=== PATIENT | male | born 1955 | race Caucasian/White ===

== ENCOUNTER 2020-02-02 23:58 | Emergency (ER) | payer BC, OTHER ==
--- NOTE | 2020-02-03 00:02 | EDM.PDOC ---
ED HPI GENERAL MEDICAL PROBLEM - General Stated Complaint: CHEST PAIN Time Seen by Provider: 02/03/20 00:02 Source of Information: Reports: Patient History Limitations: Reports: No Limitations - History of Present Illness INITIAL COMMENTS - FREE TEXT/NARRATIVE: 64-year-old male who reports that approximately 10:30 PM tonight while he was sitting in his recliner and eating a taco he developed a pain along his left shoulder that was an aching pain in then moved to his left lateral chest and then to his left flank. At this point though the pain was a sharp pain and it was worse when he took a deep breath or moved. He had no symptoms really prior to this other than some mild soreness along that area as he reports that on Wednesday of this week he had a coughing episode that was quite tense. He did not have any really significant pain at that point though. There is no nausea or vomiting associated with this. No shortness of breath. No hemoptysis. He was rating the pain as a 9/10 at its worst and it was an 8/10 when he arrived. He arrives via private vehicle via a friend. There are no other associated signs or symptoms. There are no other modifying factors. Onset: Today Duration: Getting Worse Location: Reports: Chest (Left anterior and lateral chest), Upper Extremity, Left (Left shoulder) Quality: Reports: Ache, Sharp Severity: Moderate (to severe) Improves with: Reports: Rest Worsens with: Reports: Breathing (Deep breath), Other (Palpation), Movement Context: Reports: Other Associated Symptoms: Reports: No Other Symptoms Treatments TALENT DEVELOPMENT CONSULTANT: Reports: Other (see below) (Nothing) - Related Data Allergies Allergy/AdvReac Type Severity Reaction Status Date / Time No Known Allergies Allergy Verified 02/03/20 00:18 Home Meds: Home Meds NK [No Known Home Meds] 02/03/20 [History] Past Medical History - Past Health History Medical/Surgical History: Denies Medical/Surgical History (No chronic medical problems. Surgical history as detailed below.) - Past Surgical History GI Surgical History: Reports: Colonoscopy (2) Social & Family History - Family History Cardiac: Reports: None - Tobacco Use Smoking Status *Q: Current Every Day Smoker - Alcohol Use Alcohol Use History: Yes - Recreational Drug Use Recreational Drug Use: No - Living Situation & Occupation Living situation: Reports: . Denies: Single Occupation: Employed (He is an over the road machine design engineer.) ED ROS GENERAL - Review of Systems Review Of Systems: See Below Constitutional: Reports: No Symptoms HEENT: Reports: No Symptoms Respiratory: Reports: Pleuritic Chest Pain Cardiovascular: Reports: Chest Pain. Denies: Dyspnea on Exertion, Lightheadedness Endocrine: Reports: No Symptoms GI/Abdominal: Reports: Stool Incontinence : Reports: No Symptoms Musculoskeletal: Reports: No Symptoms Skin: Reports: No Symptoms Neurological: Reports: No Symptoms Psychiatric: Reports: No Symptoms Hematologic/Lymphatic: Reports: No Symptoms Immunologic: Reports: No Symptoms ED EXAM, GENERAL - Physical Exam Exam: See Below Exam Limited By: No Limitations General Appearance: Alert, WD/WN, Mild Distress Eye Exam: Bilateral Eye: EOMI, Normal Inspection, PERRL Ears: Normal External Exam, Hearing Grossly Normal Ear Exam: Bilateral Ear: Auricle Normal Nose: Normal Inspection, Normal Mucosa, No Blood Throat/Mouth: Normal Inspection, Normal Lips, Normal Oropharynx, Normal Voice, No Airway Compromise Head: Atraumatic, Normocephalic Neck: Normal Inspection, Supple, Non-Tender, Full Range of Motion Respiratory/Chest: No Respiratory Distress, Lungs Clear, Normal Breath Sounds, No Accessory Muscle Use, Other (Tender to palpation along the left lateral and anterior chest. There is no crepitus or subcutaneous emphysema.) Cardiovascular: Normal Peripheral Pulses, Regular Rate, Rhythm Peripheral Pulses: 2+: Radial (L), Radial (R), Dorsalis Pedis (L), Dorsalis Pedis (R) GI/Abdominal: Normal Bowel Sounds, Soft, Non-Tender, No Organomegaly, No Mass Back Exam: Normal Inspection, Full Range of Motion Extremities: Normal Inspection, Normal Range of Motion, Non-Tender, No Pedal Edema, Normal Capillary Refill Neurological: Alert, Oriented, CN II-XII Intact, Normal Cognition, No Motor/Sensory Deficits Psychiatric: Normal Affect Skin Exam: Warm, Dry, Intact, Normal Color, No Rash Lymphatic: No Adenopathy EKG INTERPRETATION EKG Date: 02/03/20 Time: 00:01 Rhythm: NSR Rate (Beats/Min): 81 [place]: Normal P-Wave: Present QRS: Other (Nonspecific IVCD) ST-T: Normal QT: Normal Comparison: NA - No Prior EKG Course - Vital Signs Last Recorded V/S: Last Vital Signs Temp 36.6 C 02/03/20 00:05 Pulse 75 02/03/20 01:30 Resp 18 02/03/20 01:30 BP 113/68 02/03/20 01:30 Pulse Ox 96 02/03/20 01:30 - Orders/Labs/Meds Orders: Active Orders 24 hr Category Date Time Status EKG Documentation Completion [RC] ASDIRECTED Care 02/03/20 00:22 Active Ang Chest [CT] Stat Exams 02/03/20 01:47 Taken Chest 1V Frontal [CR] Stat Exams 02/03/20 00:21 Taken Sodium Chloride 0.9% [Normal Saline] 1,000 ml Med 02/03/20 00:30 Active IV ASDIRECTED Sodium Chloride 0.9% [Saline Flush] Med 02/03/20 00:21 Active 10 ml FLUSH ASDIRECTED PRN Peripheral IV Insertion Adult [OM.PC] Routine Oth 02/03/20 00:21 Ordered EKG 12 Lead [EK] Routine Ther 02/03/20 00:21 Ordered Medication Orders Sodium Chloride (Normal Saline) 1,000 mls @ 125 mls/hr IV ASDIRECTED STEVE Last Admin: 02/03/20 00:35 Dose: 125 mls/hr Documented by: BRENLOR Sodium Chloride (Saline Flush) 10 ml FLUSH ASDIRECTED PRN PRN Reason: Keep Vein Open Labs: Laboratory Tests 02/03/20 02/03/20 02/03/20 Range/Units 00:27 00:27 00:27 WBC 8.4 (4.5-12.0) X10-3/uL RBC 4.59 (4.30-5.75) x10(6)uL Hgb 13.5 (13.5-17.8) g/dL Hct 41.7 (30.0-51.3) % MCV 90.8 (80-96) fL MCH 29.4 (27.7-33.6) pg MCHC 32.4 (32.2-35.4) g/dL RDW 12.6 (11.5-15.5) % Plt Count 259 (125-369) X10(3)uL MPV 9.4 (7.4-10.4) fL Neut % (Auto) 64.9 (46-82) % Lymph % (Auto) 24.0 (13-37) % [place] % (Auto) 7.2 (4-12) % Eos % (Auto) 3 (1.0-5.0) % Baso % (Auto) 1 (0-2) % Neut # (Auto) 5.4 (1.6-8.3) # Lymph # (Auto) 2.0 (0.6-5.0) # [place] # (Auto) 0.6 (0.0-1.3) # Eos # (Auto) 0.3 (0.0-0.8) # Baso # (Auto) 0.1 (0.0-0.2) # D-Dimer, Quantitative 0.87 H (0.0-0.59) mg/LFEU Sodium 140 (135-145) mmol/L Potassium 3.4 L (3.5-5.3) mmol/L Chloride 103 (100-110) mmol/L Carbon Dioxide 25 (21-32) mmol/L BUN 12 (7-18) mg/dL Creatinine 0.9 (0.70-1.30) mg/dL Est Cr Clr Drug Dosing TNP Estimated GFR (MDRD) > 60 (>60) BUN/Creatinine Ratio 13.3 (9-20) Glucose 116 (80-116) mg/dL Calcium 8.8 (8.6-10.2) mg/dL Magnesium 2.0 (1.8-2.5) mg/dL Total Bilirubin 0.4 (0.1-1.3) mg/dL AST 36 H (5-25) IU/L ALT 36 (12-36) U/L Alkaline Phosphatase 85 (56-112) IU/L Troponin I (4.0-60.3) pg/mL Total Protein 7.7 (6.0-8.0) g/dL Albumin 3.4 (3.2-4.6) g/dL Globulin 4.3 g/dL Albumin/Globulin Ratio 0.8 02/03/20 02/03/20 Range/Units 00:27 02:35 WBC (4.5-12.0) X10-3/uL RBC (4.30-5.75) x10(6)uL Hgb (13.5-17.8) g/dL Hct (30.0-51.3) % MCV (80-96) fL MCH (27.7-33.6) pg MCHC (32.2-35.4) g/dL RDW (11.5-15.5) % Plt Count (125-369) X10(3)uL MPV (7.4-10.4) fL Neut % (Auto) (46-82) % Lymph % (Auto) (13-37) % [place] % (Auto) (4-12) % Eos % (Auto) (1.0-5.0) % Baso % (Auto) (0-2) % Neut # (Auto) (1.6-8.3) # Lymph # (Auto) (0.6-5.0) # [place] # (Auto) (0.0-1.3) # Eos # (Auto) (0.0-0.8) # Baso # (Auto) (0.0-0.2) # D-Dimer, Quantitative (0.0-0.59) mg/LFEU Sodium (135-145) mmol/L Potassium (3.5-5.3) mmol/L Chloride (100-110) mmol/L Carbon Dioxide (21-32) mmol/L BUN (7-18) mg/dL Creatinine (0.70-1.30) mg/dL Est Cr Clr Drug Dosing Estimated GFR (MDRD) (>60) BUN/Creatinine Ratio (9-20) Glucose (80-116) mg/dL Calcium (8.6-10.2) mg/dL Magnesium (1.8-2.5) mg/dL Total Bilirubin (0.1-1.3) mg/dL AST (5-25) IU/L ALT (12-36) U/L Alkaline Phosphatase (56-112) IU/L Troponin I 4.0 4.7 (4.0-60.3) pg/mL Total Protein (6.0-8.0) g/dL Albumin (3.2-4.6) g/dL Globulin g/dL Albumin/Globulin Ratio Meds: Medications Generic Name Dose Route Start Last Admin Trade Name Freq PRN Reason Stop Dose Admin Sodium Chloride 1,000 mls @ 125 mls/hr 02/03/20 00:30 02/03/20 00:35 Normal Saline IV 125 mls/hr ASDIRECTED STEVE Administration Sodium Chloride 10 ml 02/03/20 00:21 Saline Flush FLUSH ASDIRECTED PRN Keep Vein Open Discontinued Medications Generic Name Dose Route Start Last Admin Trade Name Mukesh PRN Reason Stop Dose Admin Aspirin 324 mg 02/03/20 00:22 02/03/20 00:35 Aspirin PO 02/03/20 00:23 324 mg ONETIME ONE Administration Iopamidol 100 ml 02/03/20 01:54 02/03/20 02:05 Isovue-370 (76%) IV 02/03/20 01:55 100 ml . DIRECTED ONE Administration Morphine Sulfate 4 mg 02/03/20 00:22 02/03/20 00:42 Morphine IVPUSH 02/03/20 00:23 4 mg ONETIME ONE Administration Ondansetron HCl 4 mg 02/03/20 00:22 02/03/20 00:52 Zofran IVPUSH 02/03/20 00:23 4 mg ONETIME ONE Administration - Radiology Interpretation Free Text/Narrative:: Portable chest x-ray showed no acute disease CTA of chest showed no evidence of pulmonary embolism. There was slight irregularity on the lateral aspect of the seventh and eighth ribs which could represent a nondisplaced fracture of indeterminate age. This is per the radiologist. The area where the patient is having the most pain. And there is some pain that is reproducible in this area. There is no crepitus or subcutaneous emphysema this area. - Re-Assessments/Exams Free Text/Narrative Re-Assessment/Exam: 02/03/20 01:40: The patient reports that his pain is basically a 1/10 at present and appears to be going away. He feels much improved. His initial troponin was normal. The d-dimer was slightly elevated. I discussed with the patient that we will need to CTA of his chest to rule out a blood clot. He is in favor of doing this. 02/03/20 03:00: The CTA of the patient's chest showed no evidence of pulmonary embolism. However there was some evidence of a left seventh and eighth rib fracture that was of indeterminate age. He apparently reports that he broke 2 ribs last year and that may be what we are seeing on the CT scan now. It should be noted that on Wednesday of this week he did have some hard coughing spells and now relates that he had some increased soreness in that area earlier in the week and he injured this area of the ribs and that is what the pain was coming from. A repeat troponin was performed and it was negative again that this rules out an RI. Pulmonary embolism has been ruled out as well. The pain appears to be musculoskeletal in nature and he is stable for discharge at this point. The patient is in agreement with the plan for discharge. I did stress to the patient that he needs to follow-up with his primary provider and it would be lemons for him to get an outpatient stress test. Precautions and reasons for return to the emergency department were discussed with the patient while he was here in the emergency department and were detailed in the patient's discharge instructions Departure - Departure Time of Disposition: 03:20 Disposition: Home, Self-Care 01 Condition: Good Clinical Impression: Atypical chest pain, Left-sided chest wall pain Ribs, multiple fractures Qualifiers: Encounter type: initial encounter Fracture type: closed Laterality: left Qualified Code(s): S22.42XA - Multiple fractures of ribs, left side, initial encounter for closed fracture Instructions: Chest Wall Pain, [id number], Nonspecific Chest Pain, Adult, [id number], Rib Fracture, Psct-on-Ldcy Referrals: Yobani Dejesus MD [Primary Care Provider] - Additional Instructions: Your blood tests were all reassuringly normal except for an elevated blood clot screening test. The CT scan of your chest showed no evidence of blood clots but did show evidence of indeterminate fractures of both the seventh and eighth ribs on your left side. You may take Tylenol or ibuprofen as needed for pain. You should avoid any strenuous lifting, pushing or pulling. You will need to follow- up with your primary provider is you will need patient testing. Back to the emergency department for marked increase in pain, trouble breathing, coughing up blood, fevers, progressive weakness or any other concerning sign or symptom. Sepsis Event Note (ED) - Focused Exam Vital Signs: Vital Signs Temp Pulse Resp BP Pulse Ox 02/03/20 01:30 75 18 113/68 96 02/03/20 01:00 79 16 114/69 96 02/03/20 00:30 81 16 120/70 98 02/03/20 00:15 84 16 139/70 99 02/03/20 00:05 36.6 C 02/03/20 00:00 83 18 140/85 99 - My Orders Last 24 Hours: My Active Orders 02/03/20 00:21 Chest 1V Frontal [CR] Stat Sodium Chloride 0.9% [Saline Flush] 10 ml FLUSH ASDIRECTED PRN Peripheral IV Insertion Adult [OM.PC] Routine EKG 12 Lead [EK] Routine 02/03/20 00:22 EKG Documentation Completion [RC] ASDIRECTED 02/03/20 00:30 Sodium Chloride 0.9% [Normal Saline] 1,000 ml IV ASDIRECTED 02/03/20 01:47 Ang Chest [CT] Stat - Assessment/Plan Last 24 Hours: My Active Orders 02/03/20 00:21 Chest 1V Frontal [CR] Stat Sodium Chloride 0.9% [Saline Flush] 10 ml FLUSH ASDIRECTED PRN Peripheral IV Insertion Adult [OM.PC] Routine EKG 12 Lead [EK] Routine 02/03/20 00:22 EKG Documentation Completion [RC] ASDIRECTED 02/03/20 00:30 Sodium Chloride 0.9% [Normal Saline] 1,000 ml IV ASDIRECTED 02/03/20 01:47 Ang Chest [CT] Stat
[2020-02-03] MEDS ORDERED: Sodium Chloride 0.9% 10 ML Syringe FLUSH PRN (00:21)
[2020-02-03] MEDS: Aspirin 81 MG Tab.Chew PO ONE (00:35)
[2020-02-03] MEDS: Sodium Chloride 0.9% 1,000 ML IV SCH (00:35)
[2020-02-03] MEDS: Morphine 4 MG/ML VIAL IVPUSH ONE (00:42)
[2020-02-03] MEDS: Ondansetron 4 MG/2 ML SDV IVPUSH ONE (00:52)
[2020-02-03] MEDS: Iopamidol 755 Mg/ML 100 ML Bottle IV ONE (02:05)
[2020-02-03 04:19] VITALS: BP 125/78; PULSE 75
--- NOTE | 2020-02-05 10:34 | CR ---
INDICATION: Chest pain. CHEST, ONE VIEW: Portable AP upright view of the chest revealed the heart to be normal in size and shape. The aorta is tortuous to a minimal degree with calcification in the arch to a mild degree. Overlying EKG leads are noted. A definite active infiltrate or effusion was not identified. IMPRESSION: 1. No acute process. 2. ASD aorta. MTDD
== END 2020-02-03 03:50 | disposition home or self-care (01) ==
LOC: FB.ED 23:58
DX: S22.42XA Multiple fractures of ribs, left side, initial encounter for closed fracture (principal); F17.200 Nicotine dependence, unspecified, uncomplicated; X58.XXXA Exposure to other specified factors, initial encounter
CPT/HCPCS: 36415; 71045; 71275; 80053; 83735; 84484; 85025; 85379; 93005; 96374; 96375; 99285; A9270; J2270; J2405; J7030; Q9967

== ENCOUNTER 2021-01-31 17:20 | Emergency (ER) | payer BC ==
[2021-01-31] MEDS ORDERED: Sodium Chloride 0.9% 10 ML Syringe FLUSH PRN (17:40)
[2021-01-31] MEDS ORDERED: Morphine 4 MG/ML VIAL IVPUSH STA (17:42)
[2021-01-31] MEDS ORDERED: Ondansetron 4 MG/2 ML SDV IVPUSH STA (17:42)
[2021-01-31] MEDS ORDERED: Ketorolac 30 MG/ML SDV IVPUSH STA (17:42)
[2021-01-31] MEDS ORDERED: Sodium Chloride 0.9% 1,000 ML IV SCH (17:45)
--- NOTE | 2021-01-31 18:15 | EDM.PDOC ---
<Julio Iglesias - Last Filed: 01/31/21 20:28> ED HPI GENERAL MEDICAL PROBLEM - General Chief Complaint: Abdominal Pain Stated Complaint: Abdominal pain Time Seen by Provider: 01/31/21 17:30 - Related Data Allergies Allergy/AdvReac Type Severity Reaction Status Date / Time No Known Allergies Allergy Verified 02/03/20 00:18 Home Meds: Home Meds Finasteride [Proscar] 5 mg PO DAILY 01/31/21 [History] Gabapentin [Neurontin] 300 mg PO BID 01/31/21 [History] Morphine 15 mg PO Q4H PRN 01/31/21 [History] Pantoprazole [ProTONIX] 40 mg PO BID 01/31/21 [History] Tamsulosin [Tamsulosin 24 Hr] 0.4 mg PO DAILY 01/31/21 [History] Course - Radiology Interpretation Free Text/Narrative:: CT scan of abdomen and pelvis showed multiple lesions within the liver felt to be in suspected cirrhosis. There is also adenopathy in the gastrohepatic tiffany hepatis portacaval and retroperitoneal distributions. There is a small amount of perihepatic ascites. There is a small right pleural effusion with some atelectasis in the right lower lobe. There is a small mass lateral to the right T11-T12 neural foramina thought to be metastatic area there is an appearance to the right iliac bone that would be associated with possible metastatic disease as well. This was per the [facility] radiologist. - Re-Assessments/Exams Free Text/Narrative Re-Assessment/Exam: 01/31/21 20:25: I assumed care of the patient at 7 PM. The patient was feeling much improved after IV fluids and pain medications. He had no further nausea. He was just going to CT scan at my arrival. CT scan shows evidence of metastatic disease in multiple areas but does not show any evidence of infection, small bowel obstruction or perforation. Reevaluation of the patient now reveals that he feels much improved and actually feels hungry. He had no further vomiting. He feels ready for discharge at this point. His abdomen is soft and nondistended. Bowel sounds are present I don't see anything that would require any further therapy or any further indication for diagnostic testing at this point. He is to follow-up with his oncologist on Wednesday to begin chemotherapy. Precautions and reasons for return to the emergency department were discussed with the patient and his while he was in the emergency department and were detailed in the patient's discharge instructions. Departure - Departure Time of Disposition: 20:32 Disposition: Home, Self-Care 01 Condition: Fair (Improved.) Clinical Impression: Dehydration Abdominal pain Qualifiers: Abdominal location: generalized Qualified Code(s): R10.84 - Generalized abdominal pain Metastatic cancer Qualifiers: Area of secondary neoplastic involvement: unspecified site Qualified Code(s): C79.9 - Secondary malignant neoplasm of unspecified site - Discharge Information Instructions: Dehydration, Adult, [id number], Abdominal Pain, Adult, [id number], Rehydration, Adult Referrals: Yobani Dejesus MD [Primary Care Provider] - Forms: ED Department Discharge Additional Instructions: Your blood tests show that you have a low blood count. You also had elevated liver tests. The CT scan of your abdomen and pelvis showed cancer in multiple areas as you were aware but it did not show any evidence of infection or obstruction or anything else that would require any acute intervention at this time. You should increase your fluid intake and stick with bland food and light foods for now and advance your diet as tolerated. Follow-up with your doctor on Wednesday as you have scheduled. Back to the emergency department for continued vomiting, worsening abdominal pain, blood in your stool, severe weakness, fever or any other concerning signs or symptoms. <Ar Gabriel - Last Filed: 02/02/21 19:18> ED HPI GENERAL MEDICAL PROBLEM - General Source of Information: Reports: Patient, Family History Limitations: Reports: No Limitations - History of Present Illness INITIAL COMMENTS - FREE TEXT/NARRATIVE: Patient is a 65 YO WM who presented to the ED because of LLQ and suprapubic pain which started yesterday morning. The pain is sharp,8-9/10 with associated N/V/D. He also had fever and chills last night although his temp in the ED is normal. There is no cough/cold or any urinary symptoms. 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 He underwent radiation treatment for weeks the last one was this week. Middle Abdominal Pain Score (Numeric/FACES): 10 Past Medical History - Past Health History Medical/Surgical History: Denies Medical/Surgical History (No chronic medical problems. Surgical history as detailed below.) Gastrointestinal History: Reports: GERD Musculoskeletal History: Reports: Other (See Below) Other Musculoskeletal History: History of broken leg. - Past Surgical History GI Surgical History: Reports: Colonoscopy (2) Social & Family History - Family History Family Medical History: No Pertinent Family History Cardiac: Reports: None - Living Situation & Occupation Living situation: Reports: . Denies: Single Occupation: Employed (He is an over the road c web developer.) ED ROS GENERAL - Review of Systems Review Of Systems: See Below Constitutional: Reports: Fever, Chills HEENT: Reports: No Symptoms Respiratory: Reports: No Symptoms Cardiovascular: Reports: No Symptoms Endocrine: Reports: No Symptoms GI/Abdominal: Reports: Abdominal Pain, Nausea, Vomiting : Reports: No Symptoms Musculoskeletal: Reports: No Symptoms Skin: Reports: No Symptoms Neurological: Reports: No Symptoms Psychiatric: Reports: No Symptoms ED EXAM, GI/ABD - Physical Exam Exam: See Below Exam Limited By: No Limitations General Appearance: Alert, No Apparent Distress Ears: Normal External Exam, Normal Canal Nose: Normal Inspection, Normal Mucosa, No Blood Throat/Mouth: Normal Inspection, Normal Lips, Normal Teeth Head: Atraumatic, Normocephalic Neck: Normal Inspection, Supple, Non-Tender Respiratory/Chest: No Respiratory Distress, Lungs Clear, Normal Breath Sounds, No Accessory Muscle Use, Chest Non-Tender Cardiovascular: Normal Peripheral Pulses, Regular Rate, Rhythm, No Edema, No Gallop, No JVD, No Murmur, No Rub GI/Abdominal Exam: Normal Bowel Sounds, Soft, No Organomegaly, Other (tenderness over the suprapubic area and LLQ) Back Exam: Normal Inspection, Full Range of Motion Extremities: Normal Inspection, Normal Range of Motion, Non-Tender Neurological: Alert, Oriented, CN II-XII Intact, Normal Cognition, Normal Gait, Normal Reflexes, No Motor/Sensory Deficits Course - Vital Signs Text/Narrative:: lab result was reviewed and discussed with patient and his spouse CT Abd/pelvis-pending NS 1 L bolus Morphine 4 mg IV x1 Zofran 4 mg IV x1 Toradol [address] Julio Iglesias will take care of discharge planning part as there is a change in shift Last Recorded V/S: Last Vital Signs Temp 37.7 C 01/31/21 17:26 Pulse 93 01/31/21 18:30 Resp 16 01/31/21 18:30 BP 106/67 07/09/21 18:30 Pulse Ox 100 01/31/21 18:30 - Orders/Labs/Meds Labs: Laboratory Tests 01/31/21 01/31/21 01/31/21 Range/Units 18:07 18:07 18:07 WBC 8.1 (3.2-10.1) x10-3/uL RBC 3.17 L (3.90-5.90) x10(6)uL Hgb 7.6 L (12.9-17.7) g/dL Hct 24.2 L (38.3-50.1) % MCV 76.3 L (80.8-98.7) fL MCH 24.0 L (27.0-33.3) pg MCHC 31.4 (28.7-35.3) g/dL RDW 18.8 H (12.4-15.0) % Plt Count 379 (117-477) x10(3)uL MPV 7.4 (6.7-11.0) fL Neut % (Auto) 84.7 H (40.3-71.8) % Lymph % (Auto) 5.9 L (15.8-45.3) % [place] % (Auto) 8.4 (5.5-15.2) % Eos % (Auto) 0.8 (0.1-6.8) % Baso % (Auto) 0.2 L (0.3-3.8) % Neut # (Auto) 6.9 (1.7-6.9) x10-3/uL Lymph # (Auto) 0.5 (0.5-4.5) x10-3/uL [place] # (Auto) 0.7 (0.0-1.2) x10-3/uL Eos # (Auto) 0.1 (0.0-0.6) x10-3/uL Baso # (Auto) 0.0 (0.0-0.3) x10-3/uL Sodium 132 L (135-145) mmol/L Potassium 3.9 (3.5-5.3) mmol/L Chloride 95 L D (100-110) mmol/L Carbon Dioxide 24 (21-32) mmol/L BUN 11 (7-18) mg/dL Creatinine 0.7 (0.70-1.30) mg/dL Est Cr Clr Drug Dosing 109.49 mL/min Estimated GFR (MDRD) > 60 (>60) BUN/Creatinine Ratio 15.7 (9-20) Glucose 114 (80-116) mg/dL Calcium 7.8 L (8.6-10.2) mg/dL Total Bilirubin 0.8 (0.1-1.3) mg/dL AST 230 H* D (5-25) IU/L ALT 61 H D (12-36) U/L Alkaline Phosphatase 458 H (56-112) IU/L Total Protein 7.6 (6.0-8.0) g/dL Albumin 1.8 L (3.2-4.6) g/dL Globulin 5.8 g/dL Albumin/Globulin Ratio 0.3 Amylase 26 (25-115) U/L Lipase 172 (73-393) U/L Urine Color (YELLOW) Urine Appearance (CLEAR) Urine pH (5.0-6.5) Ur Specific [place] (1.010-1.025) Urine Protein (NEGATIVE) mg/dL Urine Glucose (UA) (NORMAL) mg/dL Urine Ketones (NEGATIVE) mg/dL Urine Occult Blood (NEGATIVE) Urine Nitrite (NEGATIVE) Urine Bilirubin (NEGATIVE) Urine Urobilinogen (NEGATIVE) mg/dL Ur Leukocyte Esterase (NEGATIVE) Urine RBC (0-5) Urine WBC (0-5) Ur Squamous Epith Cells (NS,R,O) Urine Bacteria (NS) 01/31/21 Range/Units 18:36 WBC (3.2-10.1) x10-3/uL RBC (3.90-5.90) x10(6)uL Hgb (12.9-17.7) g/dL Hct (38.3-50.1) % MCV (80.8-98.7) fL MCH (27.0-33.3) pg MCHC (28.7-35.3) g/dL RDW (12.4-15.0) % Plt Count (117-477) x10(3)uL MPV (6.7-11.0) fL Neut % (Auto) (40.3-71.8) % Lymph % (Auto) (15.8-45.3) % [place] % (Auto) (5.5-15.2) % Eos % (Auto) (0.1-6.8) % Baso % (Auto) (0.3-3.8) % Neut # (Auto) (1.7-6.9) x10-3/uL Lymph # (Auto) (0.5-4.5) x10-3/uL [place] # (Auto) (0.0-1.2) x10-3/uL Eos # (Auto) (0.0-0.6) x10-3/uL Baso # (Auto) (0.0-0.3) x10-3/uL Sodium (135-145) mmol/L Potassium (3.5-5.3) mmol/L Chloride (100-110) mmol/L Carbon Dioxide (21-32) mmol/L BUN (7-18) mg/dL Creatinine (0.70-1.30) mg/dL Est Cr Clr Drug Dosing mL/min Estimated GFR (MDRD) (>60) BUN/Creatinine Ratio (9-20) Glucose (80-116) mg/dL Calcium (8.6-10.2) mg/dL Total Bilirubin (0.1-1.3) mg/dL AST (5-25) IU/L ALT (12-36) U/L Alkaline Phosphatase (56-112) IU/L Total Protein (6.0-8.0) g/dL Albumin (3.2-4.6) g/dL Globulin g/dL Albumin/Globulin Ratio Amylase (25-115) U/L Lipase (73-393) U/L Urine Color Yellow (YELLOW) Urine Appearance Clear (CLEAR) Urine pH 7.0 H (5.0-6.5) Ur Specific [place] 1.005 L (1.010-1.025) Urine Protein Negative (NEGATIVE) mg/dL Urine Glucose (UA) Normal (NORMAL) mg/dL Urine Ketones Negative (NEGATIVE) mg/dL Urine Occult Blood Negative (NEGATIVE) Urine Nitrite Negative (NEGATIVE) Urine Bilirubin Negative (NEGATIVE) Urine Urobilinogen Normal (NEGATIVE) mg/dL Ur Leukocyte Esterase Negative (NEGATIVE) Urine RBC 0-5 (0-5) Urine WBC 0-5 (0-5) Ur Squamous Epith Cells Few H (NS,R,O) Urine Bacteria Few H (NS) Meds: Medications Discontinued Medications Generic Name Dose Route Start Last Admin Trade Name Mukesh PRN Reason Stop Dose Admin Sodium Chloride 1,000 mls @ 999 mls/hr 01/31/21 17:45 01/31/21 18:13 Normal Saline IV 999 mls/hr ASDIRECTED STEVE Administration Iopamidol 82 ml 01/31/21 18:50 01/31/21 19:13 Iopamidol 755 Mg/Ml 100 Ml Bottle IV 01/31/21 18:51 82 ml . DIRECTED ONE Administration Ketorolac Tromethamine 30 mg 01/31/21 17:42 01/31/21 18:09 Ketorolac 30 Mg/Ml Sdv IVPUSH 01/31/21 17:43 30 mg NOW STA Administration Morphine Sulfate 4 mg 01/31/21 17:42 01/31/21 18:08 Morphine 4 Mg/Ml Vial IVPUSH 01/31/21 17:43 4 mg NOW STA Administration Ondansetron HCl 4 mg 01/31/21 17:42 01/31/21 18:08 Ondansetron 4 Mg/2 Ml Sdv IVPUSH 01/31/21 17:43 4 mg NOW STA Administration Sodium Chloride 10 ml 01/31/21 17:40 01/31/21 18:13 Sodium Chloride 0.9% 10 Ml Syringe FLUSH 10 ml ASDIRECTED PRN Administration Keep Vein Open Sepsis Event Note (ED) - Evaluation Sepsis Screening Result: No Definite Risk
[2021-01-31] MEDS ORDERED: Iopamidol 755 Mg/ML 100 ML Bottle IV ONE (18:50)
[2021-01-31 18:54] VITALS: BP 106/67; PULSE 93
== END 2021-01-31 20:55 | disposition home or self-care (01) ==
LOC: FB.ED 17:20
DX: E86.0 Dehydration (principal); C22.8 Malignant neoplasm of liver, primary, unspecified as to type; K21.9 Gastro-esophageal reflux disease without esophagitis; Z79.899 Other long term (current) drug therapy
CPT/HCPCS: 36415; 74177; 80053; 81001; 82150; 83690; 85025; 96374; 96375; 99284-25; J1885; J2270; J2405; J7030; Q9967

== ENCOUNTER 2021-02-09 12:32 | Emergency (ER) | payer BC ==
[2021-02-09] MEDS ORDERED: Ketorolac 30 MG/ML SDV IM ONE ×2 (13:31→13:43)
--- NOTE | 2021-02-09 13:40 | EDM.PDOC ---
ED HPI GENERAL MEDICAL PROBLEM - General Chief Complaint: Abdominal Pain Stated Complaint: BLADDER PAINS Time Seen by Provider: 02/09/21 14:20 Source of Information: Reports: Patient, Old Records, Provider - History of Present Illness INITIAL COMMENTS - FREE TEXT/NARRATIVE: 65-year-old gentleman with past medical history significant for liver cancer that has metastasized. He came to the ED emergency department with complaint of lower abdominal pain, dysuria, difficulty urinating, and stool incontinence. He went to the emergency department at [facility] in [place], [place] 3 days ago with very similar symptoms. He states that he was treated with morphine and Toradol and had some relief of his symptoms. He was offered admission for further evaluation for possible acute abdomen/peritonitis. CT scan showed new upper right quadrant ascites with new small right lower lobe pleural effusion. The liver mass and lymphadenopathy was grossly unchanged from previous CT. He denies chest pain, shortness of breath. - Related Data Allergies Allergy/AdvReac Type Severity Reaction Status Date / Time No Known Allergies Allergy Verified 02/03/20 00:18 Home Meds: Home Meds Finasteride [Proscar] 5 mg PO DAILY 01/31/21 [History] Gabapentin [Neurontin] 300 mg PO BID 01/31/21 [History] Morphine 15 mg PO Q4H PRN 01/31/21 [History] Pantoprazole [ProTONIX] 40 mg PO BID 01/31/21 [History] Tamsulosin [Tamsulosin 24 Hr] 0.4 mg PO DAILY 01/31/21 [History] Past Medical History - Past Health History Medical/Surgical History: Denies Medical/Surgical History Gastrointestinal History: Reports: GERD Musculoskeletal History: Reports: Other (See Below) Other Musculoskeletal History: History of broken leg. Oncologic (Cancer) History: Reports: Bone, Liver - Past Surgical History GI Surgical History: Reports: Colonoscopy (2) Social & Family History - Family History Family Medical History: No Pertinent Family History Cardiac: Reports: None - Caffeine Use Caffeine Use: Reports: None - Living Situation & Occupation Living situation: Reports: . Denies: Single Occupation: Employed (He is an over the road graphic design intern.) ED ROS GENERAL - Review of Systems Review Of Systems: See Below Constitutional: Reports: Malaise, Weakness, Fatigue HEENT: Reports: No Symptoms Respiratory: Reports: No Symptoms Cardiovascular: Reports: No Symptoms Endocrine: Reports: No Symptoms GI/Abdominal: Reports: Abdominal Pain, Anorexia, Diarrhea, Nausea, Stool Incontinence : Reports: Dysuria, Pain, Urinary Retention Musculoskeletal: Reports: No Symptoms Skin: Reports: No Symptoms Neurological: Reports: No Symptoms Psychiatric: Reports: Anxiety Hematologic/Lymphatic: Reports: No Symptoms Immunologic: Reports: No Symptoms ED EXAM, GI/ABD - Physical Exam Exam: See Below General Appearance: Alert, WD/WN, Anxious Respiratory/Chest: No Respiratory Distress, Crackles Cardiovascular: Normal Peripheral Pulses, Regular Rate, Rhythm, No Edema GI/Abdominal Exam: Distended, Guarding, Tender (Male) Exam: Circumcised. No: Testicular Mass, Testicular Tenderness (L), Urethral Discharge Rectal (Males) Exam: Other ([place]-colored loose stool with incontinence) Extremities: Normal Inspection Neurological: Alert, Oriented Psychiatric: Anxious Course - Vital Signs Text/Narrative:: Review of past medical records and review of recent medical treatment and records with essential physician showed that this patient has had similar constraints multiple times in the last 2 to 3 weeks including recent ED visit to [place], [place] on 02/06/2021. Patient was offered inpatient treatment for possible peritonitis on 02/06/2021. Patient accepted transfer for inpatient evaluation at this time. - Orders/Labs/Meds Orders: Active Orders 24 hr Category Date Time Status OCCULT BLOOD DIAGNOSTIC [OP] Stat Lab 02/09/21 13:45 Ordered Labs: Laboratory Tests 02/09/21 02/09/21 Range/Units 13:40 13:40 WBC 3.6 (3.2-10.1) x10-3/uL RBC 4.18 (3.90-5.90) x10(6)uL Hgb 10.3 L (12.9-17.7) g/dL Hct 33.0 L (38.3-50.1) % MCV 79.0 L (80.8-98.7) fL MCH 24.6 L (27.0-33.3) pg MCHC 31.2 (28.7-35.3) g/dL RDW 20.9 H (12.4-15.0) % Plt Count 232 (117-477) x10(3)uL MPV 7.0 (6.7-11.0) fL Neut % (Auto) 81.3 H (40.3-71.8) % Lymph % (Auto) 9.6 L (15.8-45.3) % [place] % (Auto) 6.2 (5.5-15.2) % Eos % (Auto) 2.8 (0.1-6.8) % Baso % (Auto) 0.1 L (0.3-3.8) % Neut # (Auto) 3.0 (1.7-6.9) x10-3/uL Lymph # (Auto) 0.4 L (0.5-4.5) x10-3/uL [place] # (Auto) 0.2 (0.0-1.2) x10-3/uL Eos # (Auto) 0.1 (0.0-0.6) x10-3/uL Baso # (Auto) 0.0 (0.0-0.3) x10-3/uL Sodium 137 (135-145) mmol/L Potassium 3.8 (3.5-5.3) mmol/L Chloride 100 D (100-110) mmol/L Carbon Dioxide 25 (21-32) mmol/L BUN 11 (7-18) mg/dL Creatinine 0.7 (0.70-1.30) mg/dL Est Cr Clr Drug Dosing TNP Estimated GFR (MDRD) > 60 (>60) BUN/Creatinine Ratio 15.7 (9-20) Glucose 104 (80-116) mg/dL Calcium 8.5 L (8.6-10.2) mg/dL Total Bilirubin 0.7 (0.1-1.3) mg/dL AST 120 H D (5-25) IU/L ALT 68 H D (12-36) U/L Alkaline Phosphatase 327 H (56-112) IU/L Total Protein 7.4 (6.0-8.0) g/dL Albumin 2.2 L (3.2-4.6) g/dL Globulin 5.2 g/dL Albumin/Globulin Ratio 0.4 Meds: Medications Discontinued Medications Generic Name Dose Route Start Last Admin Trade Name Freq PRN Reason Stop Dose Admin Ketorolac Tromethamine 30 mg 02/09/21 13:31 Ketorolac 30 Mg/Ml Sdv IM 02/09/21 13:32 ONETIME ONE Ketorolac Tromethamine 30 mg 02/09/21 13:43 02/09/21 13:50 Ketorolac 30 Mg/Ml Sdv IM 02/09/21 13:44 30 mg ONETIME ONE Administration Departure - Departure Time of Disposition: 14:18 Disposition: DC/Tfer to Acute Hospital 02 Clinical Impression: Peritonitis Abdominal pain Qualifiers: Abdominal location: generalized Qualified Code(s): R10.84 - Generalized abdominal pain - Discharge Information *PRESCRIPTION DRUG MONITORING PROGRAM REVIEWED*: Not Applicable *COPY OF PRESCRIPTION DRUG MONITORING REPORT IN PATIENT DIANE: Not Applicable (Transfer for direct admission to observation status accepted by [place], [place] via One call) Forms: ED Department Discharge - My Orders Last 24 Hours: My Active Orders 02/09/21 13:45 OCCULT BLOOD DIAGNOSTIC [OP] Stat - Assessment/Plan Last 24 Hours: My Active Orders 02/09/21 13:45 OCCULT BLOOD DIAGNOSTIC [OP] Stat
[2021-02-09 14:47] VITALS: BP 127/84; PULSE 104
== END 2021-02-09 14:55 ==
LOC: FB.ED 12:32
DX: K65.9 Peritonitis, unspecified (principal); K21.9 Gastro-esophageal reflux disease without esophagitis; Z79.899 Other long term (current) drug therapy
CPT/HCPCS: 36415; 80053; 85025; 96372; 99284; J1885